=== PATIENT | male | born 1980 | race African-American/Black ===

== ENCOUNTER 2017-11-30 22:13 | Emergency (ER) | payer OTHER, MEDICAID ==
[~2017-11-30] VITALS: Ht 180.3 cm; Wt 90.7 kg
[~2017-11-30 22:13] MED LIST: BACTRIM-DS1 EA ORAL; CEPHALEXIN500 MG ORAL; HYDROCODON-ACE1 EA15 ORAL; IBUPROFEN600 MG PO; KEFLEX500 MG ORAL
[2017-11-30 22:55] VITALS: BP 128/70
--- NOTE | 2017-11-30 23:03 | Emergency Room Report ---
History of Present Illness General Chief Complaint: Medical Clearance Source: Patient Present Illness HPI 37-year-old male presents ED for evaluation. Patient in police custody. Here for medical clearance. Per [employer] patient was tased in the back. Taser darts not used. Patient denies any chest pain or shortness of breath. Denies any pain. Admitted to alcohol use. Refuses vital signs per triage. Denies drug use. No other aggravating relieving factors. Denies any other associated symptoms Allergies: Coded Allergies: No Known Allergies (Unverified , 01/08/13) Patient History Past Medical History: none Past Surgical History: none Pertinent Family History: none Social History: Reports: alcohol use; Denies: smoking, drug use Immunizations: UTD Reviewed Nursing Documentation: PMH: Agreed; PSxH: Agreed Nursing Documentation-PMH Past Medical History: No Stated History Review of Systems All Other Systems: negative except mentioned in HPI Physical Exam Vital Signs Date Time Temp Pulse Resp B/P (MAP) Pulse Ox O2 Delivery O2 Flow Rate FiO2 11/30/17 22:14 Room Air Sp02 EP Interpretation: reviewed, normal General Appearance: no apparent distress, alert, GCS 15, non-toxic Head: normocephalic Eyes: bilateral eye normal inspection, bilateral eye PERRL ENT: normal ENT inspection Neck: normal inspection Respiratory: other - refused Cardiovascular #1: other - refused Gastrointestinal: other - refused Rectal: deferred Genitourinary: other - refused Musculoskeletal: normal inspection, other Neurologic: alert, oriented x3, responsive, motor strength/tone normal, sensory intact, speech normal Psychiatric: judgement/insight normal, memory normal, mood/affect normal, no suicidal/homicidal ideation Skin: normal inspection Lymphatic: normal inspection Medical Decision Making Diagnostic Impression: Primary Impression: Medical clearance for incarceration ER Course Hospital Course 37-year-old male presents to ED for and [facility] clearance. patient tased in the back Clinical course Patient placed on stretcher. Handcuffs. After initial history, physical exam reveals a male in no acute distress. Patient alert oriented 3. Breathing without difficulty. No evidence of taser neff or arts in the back. Patient refused auscultation with stethoscope or remainder of physical exam. Patient will be cleared for incarceration Diagnosis - medical clearance for incarceration stable and discharged into police custody Last Vital Signs Date Time Temp Pulse Resp B/P (MAP) Pulse Ox O2 Delivery O2 Flow Rate FiO2 11/30/17 22:14 Room Air Status: improved Disposition: HOME, SELF-CARE Condition: Stable Referrals: NOT CHOSEN IPA/MD,REFERRING (PCP) Departure Forms: [facility] Clearance Patient Instructions: Alcohol Intoxication, Duxf-sk-Hame Sandro Lopez MD Nov 30, 2017 23:03
== END 2017-11-30 22:55 | disposition home or self-care (01) ==
LOC: EDUNIT# 22:13 → EDBD 22:13 → EMR 22:37
DX: Z02.89 Encounter for other administrative examinations (principal)
CPT/HCPCS: 99283

== ENCOUNTER 2018-10-28 08:41 | Emergency (ER) | payer MEDICAID, OTHER ==
[~2018-10-28] VITALS: Ht 188 cm; Wt 83.9 kg
[2018-10-28 08:42] VITALS: BP 141/93
--- NOTE | 2018-10-28 08:42 | NUR ---
ED Nurse Note: Pt brought in by [facility] picked up from [facility] due to OD of unknown substance. Per EMS,. pt was twisting wtih seizzur elike movement. Pt is also accompanied by [employer] and has a warrant but not under custody. Pt is awake and alert but refuses to cooperate to questions being asked to him. No respiratory distress. Sinus tach on hall monitor 115-125.
--- NOTE | 2018-10-28 08:50 | Emergency Room Report ---
History of Present Illness General Chief Complaint: Overdose Source: Patient, EMS, Law Enforcement Present Illness HPI Disclaimer: Please note that this report is being documented using DRAGON technology. This can lead to erroneous entry secondary to incorrect interpretation by the dictating instrument. HPI: 38-year-old male presents in police custody for erratic behavior. According to first responders and police, the patient was found sleeping on a table at a [employer] restaurant. He was twitching, diaphoretic and not cooperative with law enforcement. Concern over possible overdose he was brought in for medical evaluation. He arrives in handcuffs and is in police custody. He is refusing to provide any history. No respiratory distress. He makes adequate eye contact. He is somewhat combative with staff repeating "do not touch me." PMH: Unknown, patient uncooperative PSH: Uncooperative Allergies: Unknown Social Hx: Documented alcohol use in the past, documented smoking use in the past Allergies: Coded Allergies: No Known Allergies (Unverified , 01/08/13) Nursing Documentation-PMH Past Medical History: No Stated History Review of Systems All Other Systems: limited - Patient not cooperative with history Physical Exam Vital Signs Date Time Temp Pulse Resp B/P (MAP) Pulse Ox O2 Delivery O2 Flow Rate FiO2 10/28/18 08:32 110 18 138/76 (96) 98 Room Air General: Awake and alert, in handcuffs to gurney, moderately agitated. disheveled HEENT: NC/AT. EOMI. PERRLA. Pupils are 4 mm. Anicteric sclera. Noninjected sclera. Cardiovascular: Tachycardic. S1 and S2 normal. No murmur appreciated Resp: Normal work of breathing. No cough, wheezing or crackles appreciated Abdomen: Abdomen is soft, nondistended. Nontender Skin: Intact. No abrasions, laceration or rash over the exposed skin MSK: Normal tone and bulk. Moving all extremities. No obvious deformity. Neuro: Awake and alert. Repeating "do not touch me." Moving all extremities. Medical Decision Making Diagnostic Impression: Primary Impression: Amphetamine abuse ER Course 38-year-old male presents in police custody for evaluation of erratic behavior and concern over possible overdose. Patient has stable vital signs aside from tachycardia which may be attributed to his agitation. He is restrained to the gurney with handcuffs by police. Patient is maintaining his airway, no respiratory distress, no obvious indication significant opiate overdose. Differential is broad and includes alcohol intoxication, substance abuse, metabolic abnormality, infectious process. Will start broad work-up, give IV fluids and monitor in the emergency department for improvement. Patient is very combative, not cooperative with examination or history. He is flailing his arms and striking at staff with his legs. He will require Ativan. Laboratory Tests Test 10/28/18 08:50 10/28/18 12:10 White Blood Count 12.1 K/UL (4.8-10.8) H Red Blood Count 6.07 M/UL (4.70-6.10) Hemoglobin 15.4 G/DL (14.2-18.0) Hematocrit 47.7 % (42.0-52.0) Mean Corpuscular Volume 79 FL (80-99) L Mean Corpuscular Hemoglobin 25.4 PG (27.0-31.0) L Mean Corpuscular Hemoglobin Concent 32.3 G/DL (32.0-36.0) Red Cell Distribution Width 12.2 % (11.6-14.8) Platelet Count 200 K/UL (150-450) Mean Platelet Volume 5.8 FL (6.5-10.1) L Neutrophils (%) (Auto) 84.4 % (45.0-75.0) H Lymphocytes (%) (Auto) 6.7 % (20.0-45.0) L Monocytes (%) (Auto) 7.9 % (1.0-10.0) Eosinophils (%) (Auto) 0.1 % (0.0-3.0) Basophils (%) (Auto) 0.9 % (0.0-2.0) Sodium Level 142 MMOL/L (136-145) 143 MMOL/L (136-145) Potassium Level 3.7 MMOL/L (3.5-5.1) 4.0 MMOL/L (3.5-5.1) Chloride Level 106 MMOL/L (98-107) 110 MMOL/L (98-107) H Carbon Dioxide Level 25 MMOL/L (21-32) 27 MMOL/L (21-32) Anion Gap 11 mmol/L (5-15) 6 mmol/L (5-15) Blood Urea Nitrogen 12 mg/dL (7-18) 11 mg/dL (7-18) Creatinine 1.4 MG/DL (0.55-1.30) H 1.1 MG/DL (0.55-1.30) Estimat Glomerular Filtration Rate > 60 mL/min (>60) > 60 mL/min (>60) Glucose Level 103 MG/DL (74-106) 97 MG/DL (74-106) Calcium Level 8.8 MG/DL (8.5-10.1) 8.1 MG/DL (8.5-10.1) L Phosphorus Level 2.8 MG/DL (2.5-4.9) Magnesium Level 2.1 MG/DL (1.8-2.4) Total Bilirubin 1.2 MG/DL (0.2-1.0) H Direct Bilirubin 0.2 MG/DL (0.0-0.3) Aspartate Amino Transf (AST/SGOT) 46 U/L (15-37) H Alanine Aminotransferase (ALT/SGPT) 32 U/L (12-78) Alkaline Phosphatase 99 U/L (46-116) Total Creatine Kinase 1292 U/L (26-308) H Total Protein 7.9 G/DL (6.4-8.2) Albumin 4.1 G/DL (3.4-5.0) Globulin 3.8 g/dL Albumin/Globulin Ratio 1.1 (1.0-2.7) Salicylates Level 1.8 ug/mL (2.8-20) L Urine Opiates Screen Negative (NEGATIVE) Acetaminophen Level < 2 MCG/ML (10-30) L Urine Barbiturates Screen Negative (NEGATIVE) Phencyclidine (PCP) Screen Negative (NEGATIVE) Urine Amphetamines Screen Positive (NEGATIVE) H Urine Benzodiazepines Screen Negative (NEGATIVE) Urine Cocaine Screen Negative (NEGATIVE) Urine Marijuana (THC) Screen Positive (NEGATIVE) H Serum Alcohol < 3 mg/dL EKG Diagnostic Results EKG Time: 08:50 Other Impression Sinus tachycardia. Normal axis, normal intervals. No acute ischemic changes. Rhythm Strip Diag. Results Rhythm Strip Time: 08:50 EP Interpretation: yes Rate: 120s Other Impression Sinus tachycardia, regular rhythm Reevaluation Time: 14:41 Last Vital Signs Date Time Temp Pulse Resp B/P (MAP) Pulse Ox O2 Delivery O2 Flow Rate FiO2 8/15/19 08:32 110 18 138/76 (09) 98 Room Air Status: improved Reevaluation Impression Patient was monitored in the emergency department for 5 hours receiving IV fluids. His initial labs were largely within normal as there there was a slight AK I with an elevated creatinine 1.4 and elevated CK. This improved after IV hydration. The patient is now awake alert and ambulatory. Walking with a steady gait. Urine tox screen shows positive for THC and amphetamines. This fits with the patient's clinical presentation. We provided information on detox services and outpatient counseling. He will be discharged and is no longer in police custody. Discussed reasons to return to the emergency department. He understands and agrees with this treatment plan. Disposition: HOME, SELF-CARE Condition: Improved Clif Santos MD Oct 28, 2018 08:50
[2018-10-28] MEDS ORDERED: LORazepam Inj 2mg/ml 1ml ONE (08:52)
[2018-10-28] MEDS ORDERED: LORazepam Inj 2mg/ml 1ml IV ONE (09:00)
--- NOTE | 2018-10-28 09:00 | NUR ---
ED Nurse Note: Collected blood/urine then sent.
--- NOTE | 2018-10-28 09:10 | NUR ---
ED Nurse Note: Noted pt to be groggy and unable to make eye contact. Waiting for blood/urine results to come back.
[2018-10-28 09:13] LABS: ANION GAP 11 mmol/L (5-15); BASOPHILS % (AUTO) 0.9 % (0.0-2.0); BLOOD UREA NITROGEN 12 mg/dL (7-18); CALCIUM 8.8 MG/DL (8.5-10.1); CARBON DIOXIDE 25 MMOL/L (21-32); CHLORIDE 106 MMOL/L (98-107); CREATININE 1.4 MG/DL (0.55-1.30); EOSINOPHILS % (AUTO) 0.1 % (0.0-3.0); HEMATOCRIT 47.7 % (42.0-52.0); HEMOGLOBIN 15.4 G/DL (14.2-18.0); LYMPHOCYTES % (AUTO) 6.7 % (20.0-45.0); MEAN CORPUSCULAR VOLUME 79 FL (80-99); MONOCYTES % (AUTO) 7.9 % (1.0-10.0); NEUTROPHILS % (AUTO) 84.4 % (45.0-75.0); PLATELET COUNT 200 K/UL (150-450); POTASSIUM 3.7 MMOL/L (3.5-5.1); RED BLOOD COUNT 6.07 M/UL (4.70-6.10); RED CELL DISTRIBUTION WIDTH 12.2 % (11.6-14.8); SODIUM 142 MMOL/L (136-145); WHITE BLOOD COUNT 12.1 K/UL (4.8-10.8)
[2018-10-28 09:24] LABS: ALANINE AMINOTRANSFERASE 32 U/L (12-78); ALBUMIN 4.1 G/DL (3.4-5.0); ALBUMIN/GLOBULIN RATIO 1.1 (1.0-2.7); ALKALINE PHOSPHATASE 99 U/L (46-116); ASPARTATE AMINO TRANSFERASE 46 U/L (15-37); BILIRUBIN,TOTAL 1.2 MG/DL (0.2-1.0); PHOSPHORUS 2.8 MG/DL (2.5-4.9)
[2018-10-28 09:26] LABS: BILIRUBIN,DIRECT 0.2 MG/DL (0.0-0.3); CREATINE KINASE 1292 U/L (26-308)
[2018-10-28 10:42] VITALS: BP 122/74
--- NOTE | 2018-10-28 10:44 | NUR ---
ED Nurse Note: Pt is sleeping at this time. No acute distress. Sinus rythm on night monitor at 96 HR.
[2018-10-28 12:45] LABS: ANION GAP 6 mmol/L (5-15); BLOOD UREA NITROGEN 11 mg/dL (7-18); CALCIUM 8.1 MG/DL (8.5-10.1); CARBON DIOXIDE 27 MMOL/L (21-32); CHLORIDE 110 MMOL/L (98-107); CREATININE 1.1 MG/DL (0.55-1.30); SODIUM 143 MMOL/L (136-145)
[2018-10-28 13:19] VITALS: BP 134/70
--- NOTE | 2018-10-28 13:20 | NUR ---
ED Nurse Note: RN assisted pt to ambulate. Pt unable to ambulate with steady gait. RN assisted pt back to [facility].
--- NOTE | 2018-10-28 14:20 | NUR ---
ED Nurse Note: Pt is now awake and more alert and ambulates with steady gait. VSS. Dr beyer notified.
[2018-10-28 14:49] VITALS: BP 132/71
--- NOTE | 2018-10-28 14:49 | NUR ---
ER DISCHARGE NOTE: Patient is cleared to be discharged per ERMD, pt is aox4, on room air, with stable vital signs. pt was given dc and prescription instructions and referral for rehab program, pt was able to verbalize understanding, pt id band and iv site removed without complications. pt is able to ambulate with steady gait. pt took all belongings.
--- NOTE | 2018-10-30 15:06 | Cardiology Report ---
APPROVED REPORT EKG Measurement Heart [id number] CT [id number] [id number] Sinus tachycardia Nonspecific T wave abnormality Abnormal ECG
== END 2018-10-28 14:49 | disposition home or self-care (01) ==
LOC: EDBD 08:41 → EMR 09:19
DX: F15.10 Other stimulant abuse, uncomplicated (principal); N17.9 Acute kidney failure, unspecified
CPT/HCPCS: 36415; 80048; 80053; 80307; 82248; 82550; 83735; 84100; 85025; 93005; 96361; 96374; 99284; G0480; 80329

== ENCOUNTER 2018-12-31 01:57 | Emergency (ER) | payer OTHER ==
[~2018-12-31] VITALS: Ht 180.3 cm; Wt 84.8 kg
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
--- NOTE | 2018-12-31 02:13 | NUR ---
ED Nurse Note: pt cleared to be d/c per [facility] and [facility] medical clearance form provided to [employer]. pt advised to follow up with [facility] medical staff or return to ed if changes in condition. left accompanied by [employer], pt refused vs.
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
--- NOTE | 2018-12-31 10:10 | Diagnostic Imaging Report ---
. Indication: Pain status post injury Technique: Single view of the forearm was obtained Comparison: None FINDINGS/IMPRESSION: Evaluation limited as only a single view was obtained. Surgical fixation of a mid ulnar fracture noted by means of plate affixed by multiple screws. Some bone fragments are noted adjacent to the fracture. There is overlying soft tissue swelling. Findings may be related to recent fracture and recent surgery. Correlation with timing of injury/surgery is recommended. If surgery is more remote than the possibility of infection cannot be excluded. This is discrepant from the interpretation of the treating ER clinician documented in PACS ("no acute process"). Findings of final report discussed with Dr. Batista the emergency department approximately 10:00 AM on 12/31/2018
[2018-12-31] MEDS ORDERED: BACITRACIN15 GM TOPIC (13:42)
[2018-12-31] MEDS ORDERED: TYLENOL325 MG ORAL (13:42)
[2018-12-31] MEDS ORDERED: CEPHALEXIN500 MG ORAL (13:42)
== END 2018-12-31 02:13 ==
LOC: EDBD 01:57 → EMR 02:00
DX: S50.12XA Contusion of left forearm, initial encounter (principal); Y35.893A Legal intervention involving other specified means, suspect injured, initial encounter; Y92.9 Unspecified place or not applicable
CPT/HCPCS: 99283

== ENCOUNTER 2019-07-04 14:16 | Emergency (ER) | payer OTHER ==
[~2019-07-04] VITALS: Ht 185.4 cm; Wt 99.8 kg
[~2019-07-04 14:16] MED LIST changes: +BACITRACIN15 GM TOPIC; +TYLENOL325 MG ORAL
[2019-07-04 14:22] VITALS: BP 142/82
[2019-07-04 15:10] LABS: BASOPHILS % (AUTO) 1.4 % (0.0-2.0); EOSINOPHILS % (AUTO) 0.1 % (0.0-3.0); HEMATOCRIT 43.7 % (42.0-52.0); HEMOGLOBIN 14.7 G/DL (14.2-18.0); LYMPHOCYTES % (AUTO) 12.1 % (20.0-45.0); MEAN CORPUSCULAR VOLUME 73 FL (80-99); MONOCYTES % (AUTO) 11.4 % (1.0-10.0); NEUTROPHILS % (AUTO) 75.1 % (45.0-75.0); PLATELET COUNT 240 K/UL (150-450); RED BLOOD COUNT 5.95 M/UL (4.70-6.10); RED CELL DISTRIBUTION WIDTH 11.1 % (11.6-14.8); WHITE BLOOD COUNT 12.5 K/UL (4.8-10.8)
[2019-07-04 15:29] LABS: ANION GAP 12 mmol/L (5-15); BLOOD UREA NITROGEN 31 mg/dL (7-18); CALCIUM 9.6 MG/DL (8.5-10.1); CARBON DIOXIDE 25 MMOL/L (21-32); CHLORIDE 103 MMOL/L (98-107); CREATININE 1.7 MG/DL (0.55-1.30); POTASSIUM 3.3 MMOL/L (3.5-5.1); SODIUM 140 MMOL/L (136-145)
[2019-07-04 15:48] LABS: ALANINE AMINOTRANSFERASE 26 U/L (12-78); ALBUMIN 4.3 G/DL (3.4-5.0); ALKALINE PHOSPHATASE 71 U/L (46-116); ASPARTATE AMINO TRANSFERASE 45 U/L (15-37); BILIRUBIN,TOTAL 1.5 MG/DL (0.2-1.0)
[2019-07-04 15:49] LABS: BILIRUBIN,DIRECT 0.4 MG/DL (0.0-0.3)
[2019-07-04 15:59] LABS: APPEARANCE,URINE CLEAR; BILIRUBIN, URINE NEGATIVE (NEGATIVE); COLOR,URINE BROWN; GLUCOSE, URINE (UA) NEGATIVE (NEGATIVE); KETONES,URINE 3+ (NEGATIVE); LEUKOCYTE ESTERASE ,URINE 1+ (NEGATIVE); NITRITE,URINE NEGATIVE (NEGATIVE); PH,URINE 6 (4.5-8.0); PROTEIN,URINE 2+ (NEGATIVE); UROBILINOGEN,URINE 1 MG/DL (0.0-1.0)
--- NOTE | 2019-07-04 16:05 | Emergency Room Report ---
History of Present Illness General Chief Complaint: Medical Clearance Source: Law Enforcement Present Illness HPI 38-year-old male with history of amphetamine abuse brought in by [employer] for medical clearance. Patient appears to be tachycardic and shaky. Denies any medical condition. The only complaint he has the handcuffs. Denies any pain at this time. Denies chest pain, shortness of breath, headache and dizziness. Comes in with heart rate of 140. Otherwise afebrile and vital signs within normal limits. Allergies: Coded Allergies: No Known Allergies (Unverified , 01/08/13) Patient History Past Medical History: see triage record Past Surgical History: unable to obtain Family History: unable to obtain Immunizations: UTD Reviewed Nursing Documentation: PMH: Agreed; PSxH: Agreed Nursing Documentation-PMH Past Medical History: No Stated History Review of Systems All Other Systems: negative except mentioned in HPI Physical Exam Vital Signs Date Time Temp Pulse Resp B/P (MAP) Pulse Ox O2 Delivery O2 Flow Rate FiO2 07/04/19 14:17 98.8 140 19 142/82 (102) 96 Room Air Sp02 EP Interpretation: abnormal - Tachycardic General Appearance: alert/responsive, no apparent distress Head: atraumatic Eyes: PERRL, lids + conjunctiva normal ENT: hearing intact, no angioedema Neck: supple/symm/no masses, no meningismus Respiratory: effort normal, no wheezing, chest symmetrical Cardiovascular: regular rate, rhythm, no edema Gastrointestinal: non-tender, no mass, non-distended, no rebound/guarding, normal bowel sounds Musculoskeletal: normal inspection Neurologic: normal inspection, oriented x3 Psychiatric: mood normal, no suicidal/homicidal ideation, anxious Skin: normal inspection Lymphatic: normal inspection Medical Decision Making PA Attestation All my diagnosis and treatment plans were reviewed ad discussed with my supervising physician Dr. Scherer Diagnostic Impression: Primary Impression: Amphetamine abuse Additional Impressions: Medical clearance for incarceration Tachycardia ER Course 38-year-old male with history of amphetamine abuse brought in by [employer] for medical clearance. Patient appears to be tachycardic and shaky. Denies any medical condition. The only complaint he has the handcuffs. Denies any pain at this time. Denies chest pain, shortness of breath, headache and dizziness. Comes in with heart rate of 140. Otherwise afebrile and vital signs within normal limits. Ddx considered but are not limited to: generalized anxiety disorder, panic attack, depression with psychotic feature, bipolar disorder, drug overdose Vital signs: are WNL, pt. is afebrile H&PE are most consistent with: Medical clearance for incarceration, amphetamine abuse, tachycardia ORDERS: CBC, CMP, troponin, UA, tox screen, EKG ED INTERVENTIONS: 2 L of NS bolus, potassium chloride 40 mg p.o. DISCHARGE: At this time pt. is stable for d/c to law enforcement. Will provide printed patient care instructions, and any necessary prescriptions. Care plan and follow up instructions have been discussed with the patient prior to discharge. HR decreased to 128 upon discharge, patient to continue with oral hydration. EKG Diagnostic Results Rate: tachycardiac Rhythm: other - Tachycardia ST Segments: no acute changes Other Impression No acute ST changes Last Vital Signs Date Time Temp Pulse Resp B/P (MAP) Pulse Ox O2 Delivery O2 Flow Rate FiO2 07/04/19 14:22 98.8 19 142/82 96 Room Air 07/04/19 14:22 140 Disposition: HOME, SELF-CARE Condition: Stable Referrals: NOT CHOSEN IPA/MD,REFERRING (PCP) Patient Instructions: Stimulant Use Disorder-Methamphetamines Additional Instructions: Follow-up with primary doctor, if worsening symptoms return to the emergency room Loc Gill Jul 04, 2019 16:05
[2019-07-04 16:15] VITALS: BP 144/86
[2019-07-04 16:30] VITALS: BP 128/85
== END 2019-07-04 16:30 | disposition home or self-care (01) ==
LOC: EDBD 14:16 → EMR 14:23
DX: F15.10 Other stimulant abuse, uncomplicated (principal); R00.0 Tachycardia, unspecified
CPT/HCPCS: 36415; 80053; 80307; 81003; 82248; 84484; 85025; 93005; 96360; 99284; G0480; J7030; J8499

== ENCOUNTER 2019-08-12 10:59 | Emergency (ER) | payer OTHER ==
[~2019-08-12] VITALS: Ht 188 cm; Wt 95.3 kg
[2019-08-12 10:59] VITALS: BP 150/80
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
--- NOTE | 2019-08-12 11:17 | NUR ---
ED Nurse Note: [employer] is currently at bedside deciding if the pt needs to be on a 5150 hold or to be taken to custody.
--- NOTE | 2019-08-12 11:22 | NUR ---
ED Nurse Note: offered to draw blood and administer fluid, pt refused x 3. ERMD made aware.
--- NOTE | 2019-08-12 11:25 | NUR ---
ED Nurse Note: PT is going to be placed under 5150 hold for gravely disabled. [employer] is currewntly writing the hold.
--- NOTE | 2019-08-12 11:27 | Emergency Room Report ---
History of Present Illness General Chief Complaint: Behavioral Complaint Source: EMS, Law Enforcement Present Illness HPI 38-year-old male presents with acutely intoxicated state patient was seen wandering around the road, haphazardly, not actively suicidal not actively homicidal patient is currently being placed on a 5150 for grave disability patient is refusing to answer questions or be cooperative. Patient is currently refusing blood work. Allergies: Coded Allergies: No Known Allergies (Unverified , 08/12/19) COVID-19 Screening Contact w/high risk pt: No Recent Travel to affected area: No Experienced COVID-19 symptoms?: No COVID-19 Testing performed RESIDENT PROGRAMS ASSISTANT: No Patient History Limited by: medical condition - Uncooperative Past Medical History: see triage record Social History: Reports: drug use - Unknown Reviewed Nursing Documentation: PMH: Agreed; PSxH: Agreed Review of Systems All Other Systems: limited - Uncooperative Physical Exam Vital Signs Date Time Temp Pulse Resp B/P (MAP) Pulse Ox O2 Delivery O2 Flow Rate FiO2 08/12/19 10:51 97.5 145 18 148/82 (104) 98 Room Air Sp02 EP Interpretation: reviewed, normal General Appearance: well appearing, no apparent distress, alert Head: normocephalic, atraumatic Eyes: bilateral eye PERRL, bilateral eye EOMI ENT: uvula midline, dry mucus membranes Neck: supple, supple/symm/no masses Respiratory: no respiratory distress, no retraction, no accessory muscle use Cardiovascular #1: normal peripheral pulses, no edema, no gallop, no murmur, tachycardia Gastrointestinal: non tender, soft, no guarding, no rebound Musculoskeletal: normal inspection Neurologic: alert, oriented x3 Psychiatric: mood/affect normal, no suicidal/homicidal ideation Skin: no rash, warm/dry Medical Decision Making Diagnostic Impression: Primary Impression: Behavioral disorder Additional Impression: Amphetamine abuse ER Course 38-year-old male presents with altered mental status of unknown origin differential diagnosis includes drug-related, psychosis, agitated delirium Patient given an IM dose of sedating medications due to combative nature. Patient is currently on hold, will consult psychiatry in regards to treating him. Patient given 3 L of NS to rehydrate patient Dr. Maguire consulted for possible clearance Reevaluation 2:23pm patient cleared by Dr. Maguire. Hold lifted Patient discharged after patient slept off amphetamines. Laboratory Tests Test 08/12/19 13:15 White Blood Count 6.7 K/UL (4.8-10.8) Red Blood Count 5.27 M/UL (4.70-6.10) Hemoglobin 13.2 G/DL (14.2-18.0) L Hematocrit 40.1 % (42.0-52.0) L Mean Corpuscular Volume 76 FL (80-99) L Mean Corpuscular Hemoglobin 25.0 PG (27.0-31.0) L Mean Corpuscular Hemoglobin Concent 32.9 G/DL (32.0-36.0) Red Cell Distribution Width 12.6 % (11.6-14.8) Platelet Count 205 K/UL (150-450) Mean Platelet Volume 5.3 FL (6.5-10.1) L Neutrophils (%) (Auto) 77.4 % (45.0-75.0) H Lymphocytes (%) (Auto) 15.7 % (20.0-45.0) L Monocytes (%) (Auto) 5.3 % (1.0-10.0) Eosinophils (%) (Auto) 0.7 % (0.0-3.0) Basophils (%) (Auto) 1.1 % (0.0-2.0) Sodium Level 143 MMOL/L (136-145) Potassium Level 3.6 MMOL/L (3.5-5.1) Chloride Level 107 MMOL/L (98-107) Carbon Dioxide Level 28 MMOL/L (21-32) Anion Gap 8 mmol/L (5-15) Blood Urea Nitrogen 12 mg/dL (7-18) Creatinine 1.1 MG/DL (0.55-1.30) Estimated Glomerular Filtration Rate > 60 mL/min (>60) Glucose Level 119 MG/DL (74-106) H Calcium Level 8.3 MG/DL (8.5-10.1) L Total Bilirubin 0.8 MG/DL (0.2-1.0) Aspartate Amino Transferase (AST) 31 U/L (15-37) Alanine Aminotransferase (ALT) 24 U/L (12-78) Alkaline Phosphatase 90 U/L (46-116) Total Protein 6.6 G/DL (6.4-8.2) Albumin 3.4 G/DL (3.4-5.0) Globulin 3.2 g/dL Albumin/Globulin Ratio 1.1 (1.0-2.7) Salicylates Level 1.0 ug/mL (2.8-20) L Urine Opiates Screen Negative (NEGATIVE) Acetaminophen Level < 2 MCG/ML (10-30) L Urine Barbiturates Screen Negative (NEGATIVE) Phencyclidine (PCP) Screen Negative (NEGATIVE) Urine Amphetamines Screen Positive (NEGATIVE) H Urine Benzodiazepines Screen Negative (NEGATIVE) Urine Cocaine Screen Negative (NEGATIVE) Urine Marijuana (THC) Screen Positive (NEGATIVE) H Serum Alcohol < 3 mg/dL Last Vital Signs Date Time Temp Pulse Resp B/P (MAP) Pulse Ox O2 Delivery O2 Flow Rate FiO2 08/12/19 10:59 97.5 132 18 150/80 98 Room Air Disposition: HOME, SELF-CARE Condition: Stable Referrals: [facility] Hannah Bhagat. [facility] Patient Instructions: Stimulant Use Disorder-Amphetamines Additional Instructions: The patient was provided with discharge instructions, notified to follow-up with a primary care doctor and or specialist in the next 24-48 hours, and to return to the ED if they have worsening of their symptoms. Please note that this report is being documented using Voxie technology. This can lead to erroneous entry secondary to incorrect interpretation by the dictating instrument. Danilo Rogel MD August 12, 2019 11:27
--- NOTE | 2019-08-12 11:34 | NUR ---
ED Nurse Note Report given to mandi FRANKS, endorsed plan of care.
[2019-08-12] MEDS ORDERED: LORazepam Inj 2mg/ml 1ml IM ONE (11:45)
[2019-08-12] MEDS ORDERED: DiphenhydrAMINE 50mg/ml Inj IM ONE (11:45)
[2019-08-12] MEDS ORDERED: Haloperidol 5mg/ml Inj IM ONE (11:45)
--- NOTE | 2019-08-12 12:10 | NUR ---
ED Nurse Note:pt. waS PLACED ON 51/50 HOLD BY [employer] FOR GRAVELY DISABLED, PT. WAS GIVEN im HALDOL
[2019-08-12 13:33] LABS: BASOPHILS % (AUTO) 1.1 % (0.0-2.0); EOSINOPHILS % (AUTO) 0.7 % (0.0-3.0); HEMATOCRIT 40.1 % (42.0-52.0); HEMOGLOBIN 13.2 G/DL (14.2-18.0); LYMPHOCYTES % (AUTO) 15.7 % (20.0-45.0); MEAN CORPUSCULAR VOLUME 76 FL (80-99); MONOCYTES % (AUTO) 5.3 % (1.0-10.0); NEUTROPHILS % (AUTO) 77.4 % (45.0-75.0); PLATELET COUNT 205 K/UL (150-450); RED BLOOD COUNT 5.27 M/UL (4.70-6.10); RED CELL DISTRIBUTION WIDTH 12.6 % (11.6-14.8); WHITE BLOOD COUNT 6.7 K/UL (4.8-10.8)
--- NOTE | 2019-08-12 13:34 | NUR ---
ED Nurse Note:blood and urine sent to labs and given IV fluids, personal belongings placed in locker 3
[2019-08-12 14:07] LABS: ANION GAP 8 mmol/L (5-15); BLOOD UREA NITROGEN 12 mg/dL (7-18); CALCIUM 8.3 MG/DL (8.5-10.1); CARBON DIOXIDE 28 MMOL/L (21-32); CHLORIDE 107 MMOL/L (98-107); CREATININE 1.1 MG/DL (0.55-1.30); POTASSIUM 3.6 MMOL/L (3.5-5.1); SODIUM 143 MMOL/L (136-145)
[2019-08-12 14:13] LABS: ALANINE AMINOTRANSFERASE 24 U/L (12-78); ALBUMIN 3.4 G/DL (3.4-5.0); ALBUMIN/GLOBULIN RATIO 1.1 (1.0-2.7); ALKALINE PHOSPHATASE 90 U/L (46-116); ASPARTATE AMINO TRANSFERASE 31 U/L (15-37); BILIRUBIN,TOTAL 0.8 MG/DL (0.2-1.0)
--- NOTE | 2019-08-12 14:30 | NUR ---
ED Nurse Note:dr. HANCOCK EVALUATED PATIENT AND LIFTED 51/50 OFF, PT. WILL GO HOME WHEN SOBER
[2019-08-12 18:00] VITALS: BP 140/78
[2019-08-12 19:05] VITALS: BP 140/78
--- NOTE | 2019-08-12 19:05 | NUR ---
ER DISCHARGE NOTE: Patient is cleared to be discharged per ERMD, pt is aox4, on room air, with stable vital signs. pt was given dc instructions, pt was able to verbalize understanding, pt id band and iv site removed without complications. pt is able to ambulate with steady gait. pt took all belongings.
--- NOTE | 2019-08-12 22:15 | Consultation ---
DATE OF CONSULTATION: 08/12/2019 HISTORY OF PRESENT ILLNESS: The patient is a 38-year-old black male with history of substance use disorder, has been admitted to the hospital on a 5150 when he was walking into the traffic. The patient is nonsensical, unable to be engaged and answer the questions. He was placed on a 5150 for danger to self. The patient was walking into the traffic. Upon arrival, the patient was sedated. The patient is not endorsing any suicidal or homicidal ideation. The patient is under influence of drugs and recovering now. He has not been having any suicidal thoughts. He has been eating. He has been receiving fluids due to dehydration. The patient is not gravely disabled. PAST PSYCHIATRIC HISTORY: He has had psychiatric hospitalization due to drug use and psychotic disorder. PAST MEDICAL HISTORY: None. ALLERGIES: No known drug allergies. SUBSTANCE ABUSE HISTORY: Meth, marijuana, and other illicit drug use. MENTAL STATUS EXAMINATION: The patient is asleep, arousable. Mood is neutral. Affect is flat. Thought process, there is a paucity of thought content. Thought content, no suicidal or homicidal ideation. Cognition is improving. Insight and judgement is fair. ASSESSMENT: Taberg I Crystal meth abuse. Psychotic disorder. Taberg II Deferred. Taberg III Possible homelessness. Taberg IV Low. Taberg V 50. PLAN: 1. The patient will be continued on IV fluids and medication for psychotic disorder. 2. Discontinue 5150. When the patient is awake, could be discharged with referral to substance use disorder. Aidan Maguire M.D. DR: Rod JOB#: [id number] CC:
== END 2019-08-12 19:20 | disposition home or self-care (01) ==
LOC: EDBD 10:59 → EMR 11:48 → MERGE 11:48 → EMR 19:20
DX: F91.9 Conduct disorder, unspecified (principal); F15.129 Other stimulant abuse with intoxication, unspecified
CPT/HCPCS: 36415; 80053; 80307; 85025; 96360; 96372; G0480; G0481; J1200; J1630; J7030; Z7502; 99284

== ENCOUNTER 2019-08-21 09:33 | Emergency (ER) | payer OTHER ==
[~2019-08-21] VITALS: Ht 152.4 cm; Wt 81.6 kg
--- NOTE | 2019-08-21 09:27 | NUR ---
ED Nurse Note: EMS states that pt refused to check his vital signs.
[2019-08-21] MEDS ORDERED: Haloperidol 5mg/ml Inj ONE (09:39)
[2019-08-21] MEDS ORDERED: Haloperidol 5mg/ml Inj IM ONE (09:45)
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
--- NOTE | 2019-08-21 10:05 | NUR ---
ED Nurse Note: Pt refused blood work. ERMD notified. Explained risk and benefits, verbally understood.
[2019-08-21] MEDS ORDERED: RISPERDAL1 MG PO (13:34)
--- NOTE | 2019-08-21 13:38 | NUR ---
ED Nurse Note: Pt cleared by ERMD for discharge. DC instructions/prescription was given and explained to pt and verbalized understanding of teachings. All medical deviecs such as ID band removed. Pt is AAO x4, ambulatory and left with all personal belongings. Bus pass/ meal provided.
== END 2019-08-21 13:58 | disposition home or self-care (01) ==
LOC: EDBD 09:33 → EMR 09:52 → MERGE 09:52 → EMR 13:58
DX: F91.9 Conduct disorder, unspecified (principal)
CPT/HCPCS: 96372; J1630; Z7502; 99283

== ENCOUNTER 2019-12-12 14:00 | Emergency (ER) | payer OTHER ==
[~2019-12-12] VITALS: Ht 180.3 cm; Wt 86.2 kg
[2019-12-12 13:58] VITALS: BP 160/94
[~2019-12-12 14:00] MED LIST changes: +RISPERDAL1 MG PO
--- NOTE | 2019-12-12 14:09 | Emergency Room Report ---
History of Present Illness General Chief Complaint: Medical Clearance Source: Patient, EMS, Law Enforcement Present Illness HPI 39-year-old male resents with palpitations feeling lightheaded feeling occurring was going over the eyes and the back of the please car, he endorses some nausea some shortness of breath and denies any chest pain was occurred an hour ago, has since resolved, no known aggravating or alleviating factors patient states he is now asymptomatic states he does not need anything no IV fluids no blood work refusing to drink water states he will only have fluids in a sealed container Allergies: Coded Allergies: No Known Allergies (Unverified , 01/08/13) UNABLE TO ASSESS (Unverified , 08/22/19) COVID-19 Screening Contact w/high risk pt: No Recent Travel to affected area: No Experienced COVID-19 symptoms?: No COVID-19 Testing performed FIXTURE BUILDER: No Patient History Past Medical History: see triage record Reviewed Nursing Documentation: PMH: Agreed; PSxH: Agreed Nursing Documentation-PMH Past Medical History: No Stated History Review of Systems All Other Systems: negative except mentioned in HPI Physical Exam Vital Signs Date Time Temp Pulse Resp B/P (MAP) Pulse Ox O2 Delivery O2 Flow Rate FiO2 12/12/19 13:54 97.0 116 16 160/94 (116) 99 Room Air Sp02 EP Interpretation: reviewed, normal General Appearance: well appearing, no apparent distress, alert Head: normocephalic, atraumatic Eyes: bilateral eye PERRL, bilateral eye EOMI ENT: uvula midline, moist mucus membranes Neck: supple, thyroid normal, supple/symm/no masses Respiratory: lungs clear, no respiratory distress, no retraction, no accessory muscle use Cardiovascular #1: normal peripheral pulses, no edema, no gallop, no murmur, tachycardia Gastrointestinal: non tender, soft, no guarding, no rebound Musculoskeletal: normal inspection Neurologic: alert, oriented x3 Psychiatric: mood/affect normal Skin: no rash, warm/dry Medical Decision Making Diagnostic Impression: Primary Impression: Vasovagal syncope Additional Impression: Medical clearance for incarceration ER Course 39-year-old male presents most likely with a vasovagal syncopal episode, patient states he feels fine now patient is refusing IV fluids refusing IV blood draws refusing p.o. fluids Patient states he is fine wants to leave patient remains slightly tachycardic EKG sinus tachycardia Patient is medically cleared for incarceration at this time he is currently refusing all current care EKG Diagnostic Results EKG Time: 14:03 EP Interpretation: Sinus tachycardia, rate 108, QTc 463, no acute ST elevations, normal axis Last Vital Signs Date Time Temp Pulse Resp B/P (MAP) Pulse Ox O2 Delivery O2 Flow Rate FiO2 12/12/19 13:58 116 16 Room Air 12/12/19 13:58 97.0 160/94 99 Disposition: HOME, SELF-CARE Condition: Stable Referrals: [facility] Abelino [facility]. [facility] Departure Forms: Assisted Clearance Patient Instructions: Syncope, [id number] Additional Instructions: The patient was provided with discharge instructions, notified to follow-up with a primary care doctor and or specialist in the next 24-48 hours, and to return to the ED if they have worsening of their symptoms. Please note that this report is being documented using DRAGON technology. This can lead to erroneous entry secondary to incorrect interpretation by the dictating instrument. Danilo Rogel MD Dec 12, 2019 14:09
[2019-12-12 14:16] VITALS: BP 154/90
--- NOTE | 2019-12-13 13:46 | Cardiology Report ---
APPROVED REPORT EKG Measurement Heart [id number] NC [id number] <Conclusion> Sinus tachycardia Otherwise normal ECG
== END 2019-12-12 14:16 | disposition home or self-care (01) ==
LOC: EDBD 14:00 → EMR 14:07
DX: R55 Syncope and collapse (principal); R11.0 Nausea; R00.2 Palpitations; R00.0 Tachycardia, unspecified
CPT/HCPCS: 93005; 99283